=== PATIENT | male | born 1965 ===

== ENCOUNTER 2022-07-29 07:23 | Day surgery (SDC) | payer OTHER | END 2022-07-29 12:50 | disposition home or self-care (01) | LOC: CIR.AMB 07:23 | PROVIDERS: ATTEND Surgery | DX: K80.10 Calculus of gallbladder with chronic cholecystitis without obstruction (principal); Z20.822 Contact with and (suspected) exposure to COVID-19; E11.9 Type 2 diabetes mellitus without complications; Z79.84 Long term (current) use of oral hypoglycemic drugs ==